=== PATIENT | male | born 1950 | race African-American/Black ===

== ENCOUNTER 2023-01-24 12:30 | Outpatient (CLI) | payer OTHER, MEDICARE ==
[~2023-01-24 12:30] MED LIST: Magnevist 469MG/ML 20 ML VIAL ONE
== END 2023-01-24 12:31 | disposition home or self-care (01) ==
LOC: TBSIIMAG 12:30
PROVIDERS: ATTEND Urology
DX: R97.20 Elevated prostate specific antigen [PSA] (principal); Z98.890 Other specified postprocedural states; N40.0 Benign prostatic hyperplasia without lower urinary tract symptoms
CPT/HCPCS: 72197; A9579

== ENCOUNTER 2023-06-06 23:01 | Inpatient (IN) | payer OTHER, MEDICARE ==
[2023-06-07 00:20] LABS: #Eosinphils 0.1 thou/uL (0.0-0.7); #Monocytes 0.3 thou/uL (0.11-0.59); #Neutrophils 7.6 thou/uL (1.40-6.50); %Basophils 0.4 % (0.0-1.0); %Eosinophils 1.1 % (0.0-10.0); %Lymphocytes 14.6 % (21.0-51.0); %Neutrophils 80.3 % (42.0-75.0); Hematocrit 40.8 % (42.0-52.0); Hemoglobin 13.2 g/dL (14.0-18.0); Mean Corpuscular HGB CONC 32.4 g/dL (32.0-36.0); Mean Corpuscular Hemoglobin 29.9 pg (27.0-31.0); Mean Corpuscular Volume 92.5 fl (78.0-98.0); Mean Platelet Volume 10.2 fL (7.4-10.4); Platelet Count 200 10x3/uL (130-400); RBC Distribution Width 14.6 % (11.5-14.5); Red Blood Cell (RBC) Count 4.41 mill/uL (4.70-6.10); White Blood Cell (WBC) Count 9.4 10x3/uL (4.8-10.8)
[2023-06-07 00:49] LABS: ALT (SGPT) 20 U/L (8-55); AST (SGOT) 17 U/L (5-34); Albumin 3.6 g/dL (3.4-4.8); Alkaline Phosphatase 37 U/L (40-110); Anion Gap 11 mmol/L (10-20); BUN (Urea Nitrogen) 33 mg/dL (8.4-25.7); Bilirubin, Total 0.5 mg/dL (0.2-1.2); Calc. Creatinine Clearance 0 mL/min (70-130); Calcium 8.6 mg/dL (7.8-10.44); Carbon Dioxide 24 mmol/L (23-31); Chloride 108 mmol/L (98-107); Estimated GFR 91; Globulin 2.6 g/dL (2.4-3.5); Glucose 200 mg/dL (83-110); Lipase 23 U/L (8-78); Potassium 4.5 mmol/L (3.5-5.1); Protein, Total 6.2 g/dL (5.8-8.1); Sodium 138 mmol/L (136-145)
[2023-06-07] MEDS ORDERED: Pantoprazole 40 MG VIAL ONE ×3 (01:04→08:59)
[2023-06-07] MEDS ORDERED: Ondansetron PF 4 MG/2 ML Vial ONE (01:04)
[2023-06-07 02:04] LABS: Troponin I Less than 0.010 ng/mL (< 0.028)
[2023-06-07 05:00] LABS: Bacteria/HPF None Seen HPF (None Seen); Bilirubin Negative (Negative); Blood, Urine Negative (Negative); CAUTI Indications for Culture Acute Hematuria; Clarity Clear (Clear); Glucose, Urine (Dipstick) Normal (Negative); Ketone, Urine 10 mg/dL (Negative); Leukocyte Negative Leu/uL (Negative); Nitrite Negative (Negative); Protein, Urine (Dipstick) Negative (Neg-Trace); RBC/HPF 0-3 HPF (0-3); Squamous Epithelial 0-3 HPF (0-3); Urobilinogen Normal mg/dL (Less than 2); WBC/HPF 0-3 HPF (0-3)
[2023-06-07 05:01] LABS: Specific Gravity, Urine 1.053 (1.002-1.036); Urine Culture Reflex No No
[2023-06-07] MEDS ORDERED: Ondansetron ODT 4 MG TAB PO PRN (05:21)
[2023-06-07] MEDS ORDERED: Acetaminophen 325 MG TAB PO PRN ×2 (05:21→07:36)
[2023-06-07] MEDS ORDERED: Ondansetron PF 4 MG/2 ML Vial IVP PRN (05:21)
[2023-06-07 06:27] VITALS: BMI 29.2
[2023-06-07 06:55] LABS: Hematocrit 39.9 % (42.0-52.0)
[2023-06-07 07:30] LABS: Hemoglobin A1c 5.5 % (4.0-6.0)
[2023-06-07] MEDS ORDERED: Calcium Carbonate 500 MG ChewTAB PO PRN (07:49)
[2023-06-07] MEDS: Pantoprazole 40 MG VIAL IVP SCH ×2 (09:10→20:42)
[2023-06-07] MEDS ORDERED: Iopamidol-370 76% 500 ML MDV (1 ML CHARGE) ONE (10:22)
[2023-06-07] MEDS: Dextrose 5%-Lactated Ringers 1,000 ML IV SCH ×2 (10:56→20:42)
[2023-06-07 14:46] LABS: Hematocrit 38.5 % (42.0-52.0); Hemoglobin 12.3 g/dL (14.0-18.0)
[2023-06-08 06:58] LABS: #Basophils 0.1 thou/uL (0.0-0.2); #Eosinphils 0.3 thou/uL (0.0-0.7); #Monocytes 0.9 thou/uL (0.11-0.59); #Neutrophils 5.1 thou/uL (1.40-6.50); %Basophils 0.5 % (0.0-1.0); %Eosinophils 3.1 % (0.0-10.0); %Lymphocytes 30.3 % (21.0-51.0); %Monocytes 10.2 % (0.0-10.0); %Neutrophils 55.6 % (42.0-75.0); Hematocrit 40.9 % (42.0-52.0); Hemoglobin 13.2 g/dL (14.0-18.0); Mean Corpuscular HGB CONC 32.3 g/dL (32.0-36.0); Mean Platelet Volume 10.4 fL (7.4-10.4); Platelet Count 220 10x3/uL (130-400); RBC Distribution Width 14.8 % (11.5-14.5); White Blood Cell (WBC) Count 9.2 10x3/uL (4.8-10.8)
[2023-06-08 07:29] LABS: ALT (SGPT) 18 U/L (8-55); AST (SGOT) 17 U/L (5-34); Albumin 3.9 g/dL (3.4-4.8); Alkaline Phosphatase 39 U/L (40-110); Anion Gap 12 mmol/L (10-20); BUN (Urea Nitrogen) 19 mg/dL (8.4-25.7); Bilirubin, Total 0.5 mg/dL (0.2-1.2); Calc. Creatinine Clearance 86 mL/min (70-130); Calcium 9.4 mg/dL (7.8-10.44); Carbon Dioxide 27 mmol/L (23-31); Chloride 106 mmol/L (98-107); Estimated GFR 79; Globulin 3.1 g/dL (2.4-3.5); Glucose 94 mg/dL (83-110); Potassium 3.7 mmol/L (3.5-5.1); Sodium 141 mmol/L (136-145)
[2023-06-08] MEDS: Pantoprazole 40 MG VIAL IVP SCH (07:31)
[2023-06-08 08:24] VITALS: BP 150/89; TEMP 98.1
[2023-06-08] MEDS ORDERED: PROPOFOL 200 MG/20 ML VIAL ONE (09:06)
== END 2023-06-08 11:34 | disposition home or self-care (01) | DRG 378 ==
LOC: ERS 23:01 → ERHOLD 06-07 05:29 → T4-A 06-07 05:30
PROVIDERS: ADMIT Internal Medicine; ATTEND Internal Medicine
PROC: 0DB78ZX Excision of Stomach, Pylorus, Via Natural or Artificial Opening Endoscopic, Diagnostic (ICD-10-PCS; principal; 2023-06-08)
DX: K25.4 Chronic or unspecified gastric ulcer with hemorrhage (principal); D62 Acute posthemorrhagic anemia; N18.2 Chronic kidney disease, stage 2 (mild); E86.0 Dehydration; K29.70 Gastritis, unspecified, without bleeding; K29.80 Duodenitis without bleeding; K20.90 Esophagitis, unspecified without bleeding; I12.9 Hypertensive chronic kidney disease with stage 1 through stage 4 chronic kidney disease, or unspecified chronic kidney disease; D63.1 Anemia in chronic kidney disease; N40.0 Benign prostatic hyperplasia without lower urinary tract symptoms; Z79.899 Other long term (current) drug therapy; Z79.82 Long term (current) use of aspirin
CPT/HCPCS: 36415; 71045; 74177; 80053; 81001; 83036; 83690; 83735; 84484; 85025; 86850; 86900; 86901; 88305; 88342; 93005; 96374; 96375; C9113; J2405; J2704; Q9967

== ENCOUNTER 2023-09-06 10:54 | Outpatient (CLI) | payer MEDICARE, OTHER | END 2023-09-06 10:55 | disposition home or self-care (01) | LOC: BICRAD 10:54 | PROVIDERS: ATTEND Nurse Practitioner Family | DX: M25.562 Pain in left knee (principal); M17.12 Unilateral primary osteoarthritis, left knee ==

== ENCOUNTER 2023-10-13 08:52 | Outpatient (CLI) | payer OTHER, MEDICARE ==
[2023-10-13] MEDS ORDERED: Iopamidol-370 76% 500 ML MDV (1 ML CHARGE) ONE (13:42)
== END 2023-10-13 08:53 | disposition home or self-care (01) ==
LOC: BICCT 08:52
PROVIDERS: ATTEND Urology
DX: R97.20 Elevated prostate specific antigen [PSA] (principal); N40.1 Benign prostatic hyperplasia with lower urinary tract symptoms; K42.9 Umbilical hernia without obstruction or gangrene; K40.21 Bilateral inguinal hernia, without obstruction or gangrene, recurrent; K76.0 Fatty (change of) liver, not elsewhere classified; K40.90 Unilateral inguinal hernia, without obstruction or gangrene, not specified as recurrent
CPT/HCPCS: 74178; 82565; Q9967

== ENCOUNTER 2023-11-08 14:47 | Outpatient (CLI) | payer MEDICARE, OTHER | END 2023-11-08 14:48 | disposition home or self-care (01) | LOC: LABBT 14:47 | PROVIDERS: ATTEND Urology | DX: Z01.818 Encounter for other preprocedural examination (principal); N40.1 Benign prostatic hyperplasia with lower urinary tract symptoms; R97.20 Elevated prostate specific antigen [PSA]; R35.0 Frequency of micturition; K40.21 Bilateral inguinal hernia, without obstruction or gangrene, recurrent; K42.9 Umbilical hernia without obstruction or gangrene; M67.90 Unspecified disorder of synovium and tendon, unspecified site; Z98.890 Other specified postprocedural states | CPT/HCPCS: 71046; 93005; 93010 ==

== ENCOUNTER 2023-11-14 06:03 | Inpatient (IN) | payer OTHER, MEDICARE ==
[2023-11-08 15:21] VITALS: BMI 28.7
[2023-11-08 16:24] LABS: Hematocrit 43.6 % (38.8-50.0); Mean Corpuscular HGB CONC 32.1 g/dL (32.0-36.0); Mean Platelet Volume 10.5 fl (7.4-10.4); Platelet Count 262 10x3/uL (150-450); RBC Distribution Width 19.8 % (11.5-14.5); Red Blood Cell (RBC) Count 5.38 10x6/uL (4.32-5.72); White Blood Cell (WBC) Count 6.8 10x3/uL (3.5-10.5)
[2023-11-08 16:33] LABS: Bilirubin Neg (Negative); Blood, Urine Negative (Negative); Clarity Clear (Clear); Glucose, Urine (Dipstick) Normal (Negative); Ketone, Urine Negative (Negative); Leukocyte Negative (Negative); Nitrite Negative (Negative); Protein, Urine (Dipstick) 15 mg/dl (Neg-Trace); Specific Gravity, Urine 1.025 (1.005-1.030); Urobilinogen Normal mg/dL (Less than 2)
[2023-11-08 16:40] LABS: PTT 29.2 sec (22.0-33.0); Prothrombin Time 10.6 sec (9.5-12.1)
[2023-11-08 16:42] LABS: ALT (SGPT) 26 U/L (8-55); AST (SGOT) 24 U/L (5-34); Albumin 4.2 g/dL (3.4-4.8); Alkaline Phosphatase 59 U/L (40-110); Anion Gap 15 mmol/L (10-20); BUN (Urea Nitrogen) 14 mg/dL (8.4-25.7); Bilirubin, Total 0.3 mg/dL (0.2-1.2); Calc. Creatinine Clearance 0 mL/min (70-130); Calcium 9.5 mg/dL (7.8-10.44); Carbon Dioxide 26 mmol/L (23-31); Chloride 104 mmol/L (98-107); Estimated GFR 66; Globulin 3.4 g/dL (2.4-3.5); Glucose 105 mg/dL (83-110); Potassium 3.9 mmol/L (3.5-5.1); Protein, Total 7.6 g/dL (5.8-8.1); Sodium 141 mmol/L (136-145)
[2023-11-08 17:13] LABS: RBC/HPF 0-3 HPF (0-3); Squamous Epithelial 0-3 HPF (0-3); WBC/HPF 0-3 HPF (0-3)
[2023-11-08 17:14] LABS: Bacteria/HPF Rare-Few HPF (None Seen)
[2023-11-14] MEDS ORDERED: LevoFLOXacin D5W 500 mg (100 mL) BAG ONE (06:33)
[2023-11-14] MEDS ORDERED: ceFOXitin 1 GM VIAL ONE (06:33)
[2023-11-14] MEDS ORDERED: Sodium Chloride 0.9% 100 ML ONE (06:34)
[2023-11-14] MEDS ORDERED: Lidocaine 1% MPF 2 ML VIAL ONE (06:59)
[2023-11-14] MEDS ORDERED: Midazolam HCl 2 mg/2 ml Vial ONE (07:16)
[2023-11-14] MEDS ORDERED: fentaNYL 50 mcg/mL 1 mL Vial ONE (07:16)
[2023-11-14] MEDS ORDERED: Bupivacaine PF 0.5% 30 ML VIAL ONE (07:17)
[2023-11-14] MEDS ORDERED: fentaNYL PF 100 MCG/2 ML SYRINGE ONE (07:22)
[2023-11-14] MEDS ORDERED: PROPOFOL 20 ML ONE ×2 (07:22→08:06)
[2023-11-14] MEDS ORDERED: Rocuronium Bromide 10 MG/ML (10ML VIAL) ONE (07:22)
[2023-11-14] MEDS ORDERED: Lidocaine 2% PF 5 ML VIAL ONE (07:23)
[2023-11-14] MEDS ORDERED: ePHEDrine Sulfate 50 MG/10 ML VIAL ONE ×2 (07:39→10:25)
[2023-11-14] MEDS ORDERED: Dexamethasone 20 MG/5 ML VIAL ONE (09:01)
[2023-11-14] MEDS ORDERED: Ondansetron PF 4 MG/2 ML Vial ONE (09:01)
[2023-11-14] MEDS ORDERED: HYDROmorphone 2 MG/ML VIAL ONE (12:31)
[2023-11-14] MEDS ORDERED: HYDROmorphone 2 MG/ML VIAL SLOW IVP PRN (12:43)
[2023-11-14] MEDS ORDERED: Ondansetron HCl/PF 4 MG/2 ML Vial IVP PRN (12:43)
[2023-11-14] MEDS ORDERED: Promethazine HCl 25 MG/ML VIAL IM PRN (12:43)
[2023-11-14] MEDS ORDERED: PACU-Morphine 4MG/ML VIAL SLOW IVP PRN (12:43)
[2023-11-14] MEDS ORDERED: HYDROcodone/Acetaminophen 7.5/325 mg Tablet PO PRN ×2 (13:08)
[2023-11-14] MEDS ORDERED: diphenhydrAMINE 50 MG/ML VIAL IVP PRN (13:08)
[2023-11-14] MEDS ORDERED: hydrALAZINE 20 MG/ML VIAL SLOW IVP PRN (13:08)
[2023-11-14] MEDS ORDERED: Zolpidem Tartrate 5 MG TAB PO PRN (13:08)
[2023-11-14] MEDS ORDERED: Acetaminophen 500 MG TAB PO PRN (13:08)
[2023-11-14] MEDS ORDERED: Morphine 2 MG/ML VIAL SLOW IVP PRN (13:08)
[2023-11-14] MEDS ORDERED: Mag-Al 1200 mg/1200 mg/30 ML UDCUP PO PRN (13:11)
[2023-11-14] MEDS ORDERED: Ondansetron PF 4 MG/2 ML Vial IVP PRN (13:11)
[2023-11-14] MEDS ORDERED: Bupivacaine HCl 0.5%/Epinephrine 1:200,000/PF 30 ml Vial ONE (13:30)
[2023-11-14 13:39] LABS: Actual Bicarbonate (HCO3a) 21.5 mEq/L (22-28); Base Excess (BEa) -4.6 mEq/L (-2.0 to +3.0); CO2 Tension 43.1 mmHg (35.0-45.0); Calcium, Ionized (arterial) 1.12 mmol/L (1.12-1.30); Carboxyhemoglobin (COHb) 0.9 gm% (0.0-3.0); Hematocrit-ABG 43 % (42.0-52.0); Hemoglobin (Hb) 14.5 g/dL (14.0-18.0); O2 Tension (PaO2), arterial 74.7 mmHg (> 70.0); Potassium - ABG Lab 3.16 mmol/L (3.70-5.30); pH, Arterial 7.315 (7.35-7.45)
[2023-11-14 13:43] LABS: Puncture Site Arterial Line
[2023-11-14 13:47] LABS: #Monocytes 0.4 thou/uL (0.11-0.59); %Basophils 0.1 % (0.0-1.0); %Eosinophils 0.1 % (0.0-10.0); %Lymphocytes 9.1 % (21.0-51.0); %Monocytes 2.8 % (0.0-10.0); %Neutrophils 87.6 % (42.0-75.0); Hematocrit 43.8 % (42.0-52.0); Hemoglobin 13.9 g/dL (14.0-18.0); Mean Corpuscular HGB CONC 31.7 g/dL (32.0-36.0); Mean Corpuscular Hemoglobin 26.1 pg (27.0-31.0); Mean Corpuscular Volume 82.2 fl (78.0-98.0); Mean Platelet Volume 9.8 fL (7.4-10.4); Platelet Count 254 10x3/uL (130-400); RBC Distribution Width 19.9 % (11.5-14.5); Red Blood Cell (RBC) Count 5.33 mill/uL (4.70-6.10); White Blood Cell (WBC) Count 13.7 10x3/uL (4.8-10.8)
[2023-11-14 14:45] LABS: Calcium 8.6 mg/dL (7.8-10.44); Chloride 105 mmol/L (98-107); Glucose 160 mg/dL (83-110); Potassium 3.1 mmol/L (3.5-5.1); Sodium 138 mmol/L (136-145)
[2023-11-14 14:47] LABS: Anion Gap 17 mmol/L (10-20); Carbon Dioxide 19 mmol/L (23-31)
[2023-11-14 14:49] LABS: Calc. Creatinine Clearance 72 mL/min (70-130); Estimated GFR 65
[2023-11-14 14:50] LABS: BUN (Urea Nitrogen) 13 mg/dL (8.4-25.7)
[2023-11-14] MEDS ORDERED: Hyoscyamine SL 0.125 MG TAB ONE (15:19)
[2023-11-14] MEDS ORDERED: Phenazopyridine HCl 100 MG TAB ONE (15:19)
[2023-11-14] MEDS: Phenazopyridine HCl 100 MG TAB PO SCH (15:21)
[2023-11-14] MEDS: Hyoscyamine SL 0.125 MG TAB SL SCH (15:22)
[2023-11-14] MEDS: Sodium Chloride 0.9% 1,000 ML IV SCH (17:04)
[2023-11-14] MEDS: Potassium Chloride 20 MEQ in Premix 1 BAG IVPB SCH (17:04)
[2023-11-14] MEDS: Famotidine/PF 20 mg/2ml Vial SLOW IVP SCH (20:55)
[2023-11-14] MEDS: Docusate 100 MG CAP PO SCH (20:55)
[2023-11-15 03:44] LABS: #Monocytes 1.7 thou/uL (0.11-0.59); #Neutrophils 12.2 thou/uL (1.40-6.50); %Basophils 0.1 % (0.0-1.0); %Lymphocytes 7.3 % (21.0-51.0); %Monocytes 11.2 % (0.0-10.0); %Neutrophils 81.1 % (42.0-75.0); Hematocrit 44.1 % (42.0-52.0); Hemoglobin 13.6 g/dL (14.0-18.0); Mean Corpuscular HGB CONC 30.8 g/dL (32.0-36.0); Mean Corpuscular Hemoglobin 25.6 pg (27.0-31.0); Mean Corpuscular Volume 83.1 fl (78.0-98.0); Mean Platelet Volume 9.9 fL (7.4-10.4); Platelet Count 239 10x3/uL (130-400); RBC Distribution Width 20.4 % (11.5-14.5); Red Blood Cell (RBC) Count 5.31 mill/uL (4.70-6.10)
[2023-11-15 04:03] LABS: Anion Gap 16 mmol/L (10-20); BUN (Urea Nitrogen) 13 mg/dL (8.4-25.7); Calc. Creatinine Clearance 80 mL/min (70-130); Calcium 8.5 mg/dL (7.8-10.44); Carbon Dioxide 23 mmol/L (23-31); Chloride 102 mmol/L (98-107); Estimated GFR 75; Glucose 103 mg/dL (83-110); Potassium 4.3 mmol/L (3.5-5.1); Sodium 137 mmol/L (136-145)
[2023-11-15] MEDS ORDERED: Hyoscyamine SL 0.125 MG TAB SL PRN (07:33)
[2023-11-15] MEDS: Ketorolac Tromethamine 30 MG (1 mL) VIAL IVP SCH (08:11)
[2023-11-15] MEDS: Metoprolol Tartrate 100 MG TAB PO SCH (08:11)
[2023-11-15] MEDS: Amlodipine 10 MG TAB PO SCH (08:11)
[2023-11-15] MEDS: Polyethylene Glycol 3350 17 GM Packet PO SCH (08:12)
[2023-11-15] MEDS: cefTRIAXone\\ROCEPHIN 1 GM in Sodium Chloride 0.9% 100 ML IVPB SCH (13:57)
[2023-11-16 04:44] LABS: #Basophils 0.1 thou/uL (0.0-0.2); #Eosinphils 0.2 thou/uL (0.0-0.7); #Monocytes 1.3 thou/uL (0.11-0.59); #Neutrophils 7.4 thou/uL (1.40-6.50); %Basophils 0.4 % (0.0-1.0); %Eosinophils 1.3 % (0.0-10.0); %Lymphocytes 21.8 % (21.0-51.0); %Monocytes 11.2 % (0.0-10.0); Hematocrit 40.1 % (42.0-52.0); Hemoglobin 12.4 g/dL (14.0-18.0); Mean Corpuscular HGB CONC 30.9 g/dL (32.0-36.0); Mean Corpuscular Hemoglobin 25.8 pg (27.0-31.0); Mean Corpuscular Volume 83.4 fl (78.0-98.0); Platelet Count 212 10x3/uL (130-400); RBC Distribution Width 20.5 % (11.5-14.5); Red Blood Cell (RBC) Count 4.81 mill/uL (4.70-6.10); White Blood Cell (WBC) Count 11.4 10x3/uL (4.8-10.8)
[2023-11-16 05:09] LABS: Anion Gap 11 mmol/L (10-20); BUN (Urea Nitrogen) 12 mg/dL (8.4-25.7); Calc. Creatinine Clearance 96 mL/min (70-130); Calcium 8.1 mg/dL (7.8-10.44); Carbon Dioxide 20 mmol/L (23-31); Chloride 110 mmol/L (98-107); Estimated GFR 91; Glucose 78 mg/dL (83-110); Sodium 137 mmol/L (136-145)
[2023-11-16] MEDS: Famotidine 20 MG TAB PO SCH (08:39)
[2023-11-17 04:44] LABS: #Basophils 0.1 thou/uL (0.0-0.2); #Eosinphils 0.3 thou/uL (0.0-0.7); #Neutrophils 5.1 thou/uL (1.40-6.50); %Basophils 0.6 % (0.0-1.0); %Eosinophils 3.3 % (0.0-10.0); %Lymphocytes 24.3 % (21.0-51.0); %Monocytes 11.6 % (0.0-10.0); %Neutrophils 59.7 % (42.0-75.0); Hematocrit 39.6 % (42.0-52.0); Hemoglobin 12.4 g/dL (14.0-18.0); Mean Corpuscular HGB CONC 31.3 g/dL (32.0-36.0); Mean Corpuscular Hemoglobin 26.1 pg (27.0-31.0); Mean Corpuscular Volume 83.2 fl (78.0-98.0); Mean Platelet Volume 10.2 fL (7.4-10.4); Platelet Count 220 10x3/uL (130-400); RBC Distribution Width 19.9 % (11.5-14.5); Red Blood Cell (RBC) Count 4.76 mill/uL (4.70-6.10); White Blood Cell (WBC) Count 8.6 10x3/uL (4.8-10.8)
[2023-11-17 05:12] LABS: Anion Gap 10 mmol/L (10-20); BUN (Urea Nitrogen) 12 mg/dL (8.4-25.7); Calc. Creatinine Clearance 86 mL/min (70-130); Calcium 8.4 mg/dL (7.8-10.44); Carbon Dioxide 23 mmol/L (23-31); Chloride 106 mmol/L (98-107); Estimated GFR 82; Glucose 89 mg/dL (83-110); Potassium 3.6 mmol/L (3.5-5.1); Sodium 135 mmol/L (136-145)
[2023-11-17] MEDS: FLU VACC QS2023(65UP)/MF59C/PF 60 MCG/0.5 ML SYRINGE IM ONE (10:07)
[2023-11-17 10:14] VITALS: BP 167/93
[2023-11-18 06:33] LABS: #Eosinphils 0.3 thou/uL (0.0-0.7); #Monocytes 0.8 thou/uL (0.11-0.59); #Neutrophils 3.6 thou/uL (1.40-6.50); %Basophils 0.4 % (0.0-1.0); %Eosinophils 4.3 % (0.0-10.0); %Lymphocytes 31.1 % (21.0-51.0); %Neutrophils 51.6 % (42.0-75.0); Hematocrit 42.6 % (42.0-52.0); Hemoglobin 13.4 g/dL (14.0-18.0); Mean Corpuscular HGB CONC 31.5 g/dL (32.0-36.0); Mean Corpuscular Hemoglobin 25.7 pg (27.0-31.0); Mean Corpuscular Volume 81.8 fl (78.0-98.0); Mean Platelet Volume 10.8 fL (7.4-10.4); Platelet Count 238 10x3/uL (130-400); RBC Distribution Width 20.3 % (11.5-14.5); Red Blood Cell (RBC) Count 5.21 mill/uL (4.70-6.10); White Blood Cell (WBC) Count 6.9 10x3/uL (4.8-10.8)
[2023-11-18 07:03] LABS: Anion Gap 11 mmol/L (10-20); BUN (Urea Nitrogen) 12 mg/dL (8.4-25.7); Calc. Creatinine Clearance 99 mL/min (70-130); Calcium 8.7 mg/dL (7.8-10.44); Carbon Dioxide 28 mmol/L (23-31); Chloride 105 mmol/L (98-107); Estimated GFR 92; Glucose 78 mg/dL (83-110); Potassium 3.6 mmol/L (3.5-5.1); Sodium 140 mmol/L (136-145)
[2023-11-18] MEDS: Furosemide 40 MG (4 mL) VIAL SLOW IVP SCH (08:11)
[2023-11-18 13:51] VITALS: TEMP 98.1
== END 2023-11-18 13:45 | disposition home or self-care (01) | DRG 718 ==
LOC: SDC 06:03 → IMCU/EMU 13:08
PROVIDERS: ADMIT Urology; ATTEND Urology
PROC: 0VB04ZZ Excision of Prostate, Percutaneous Endoscopic Approach (ICD-10-PCS; principal; 2023-11-14)
PROC: 8E0W4CZ Robotic Assisted Procedure of Trunk Region, Percutaneous Endoscopic Approach (ICD-10-PCS; 2023-11-14)
PROC: 4A033R1 Measurement of Arterial Saturation, Peripheral, Percutaneous Approach (ICD-10-PCS; 2023-11-14)
PROC: 3E033XZ Introduction of Vasopressor into Peripheral Vein, Percutaneous Approach (ICD-10-PCS; 2023-11-14)
DX: N40.1 Benign prostatic hyperplasia with lower urinary tract symptoms (principal); R97.20 Elevated prostate specific antigen [PSA]; R35.0 Frequency of micturition; Z98.890 Other specified postprocedural states; M67.90 Unspecified disorder of synovium and tendon, unspecified site; K42.9 Umbilical hernia without obstruction or gangrene; K40.21 Bilateral inguinal hernia, without obstruction or gangrene, recurrent; I10 Essential (primary) hypertension; M10.9 Gout, unspecified; Z79.899 Other long term (current) drug therapy; Z82.49 Family history of ischemic heart disease and other diseases of the circulatory system; Z83.3 Family history of diabetes mellitus
CPT/HCPCS: 36415; 36416; 80048; 80053; 81001; 82570; 82805; 85025; 85027; 85610; 85730; 86850; 86900; 86901; 87086; 88305; C1713; C1889; C2613; J0665; J0694; J0696; J1100; J1170; J1642; J1885; J1940; J1956; J2001; J2250; J2405; J2704; J3010; J3480; J3490; J7050; S0028